=== PATIENT | female | born 1970 | race Caucasian/White ===

== ENCOUNTER 2017-06-27 10:43 | Emergency (ER) | payer OTHER ==
[~2017-06-27] VITALS: Ht 162.6 cm; Wt 77.1 kg
[~2017-06-27 10:43] MED LIST: BENTYL 20 MG TA20 M1 PO; CIPRO500 MG PO; FLAGYL500 MG PO; REMERON15 MG PO; TRI-SPRINTEC1 EACH PO; ZOFRAN ODT4 MG PO
[2017-06-27 11:03] LABS: ABSOLUTE BASOPHILS 0.1 thou/uL (0.0-0.2); ABSOLUTE EOSINOPHILS 0.2 thou/uL (0.0-0.7); ABSOLUTE LYMPHOCYTES 2.7 thou/uL (0.8-5.3); ABSOLUTE MONOCYTES 0.5 thou/uL (0.0-1.2); ABSOLUTE NEUTROPHILS 5.7 thou/uL (1.6-8.1); BASOPHILS 1.2 %; EOSINOPHILS 1.7 %; HEMATOCRIT 37.4 % (37.0-47.0); HEMOGLOBIN 13.1 gm/dL (12.0-15.0); LYMPHOCYTES 29.6 %; MCH 29.4 pg (26.0-34.0); MCHC 34.9 g/dL (28.0-37.0); MCV 84.2 fL (80.0-100.0); MONOCYTES 5.4 %; MPV 7.1 fl. (7.2-11.1); NUCLEATED RBCS 0 /100WBC; PLATELET COUNT* 345 thou/uL (150-400); POLYS 62.1 %; RBC 4.44 mil/uL (4.20-5.00); RDW-CV 13.4 % (10.5-14.5); WBC 9.2 thou/uL (4.0-11.0)
[2017-06-27 11:14] LABS: PROTIME 9.4 Seconds (9.20-11.50)
[2017-06-27 11:24] LABS: ANION GAP 10 mmol/L (7-16); BUN 13 mg/dL (7-18); CALCIUM 8.7 mg/dL (8.5-10.1); CHLORIDE 104 mmol/L (98-107); CO2 25 mmol/L (21-32); CREATININE 0.9 mg/dL (0.6-1.3); GLUCOSE 104 mg/dL (70-99); POTASSIUM 3.6 mmol/L (3.5-5.1); SODIUM 139 mmol/L (136-145)
[2017-06-27 11:44] LABS: ALKALINE PHOSPHATASE 108 U/L (46-116); CK-MB MASS < 0.5 ng/mL (<0.5-3.6); LIPASE 239 U/L (73-393); MAGNESIUM 2.1 mg/dL (1.8-2.4); NT-PRO BRAIN NAT PEPTIDE 48 pg/mL (<300); SGOT 17 U/L (15-37); SGPT 17 U/L (30-65); TOTAL BILIRUBIN 0.2 mg/dL (<0.1-1.0); TOTAL PROTEIN 7.7 g/dL (6.4-8.2); TROPONIN-I LEVEL <0.06 ng/mL (<0.06)
[2017-06-27 11:47] LABS: INFLUENZA A ANTIGEN None Detected (None Detect); INFLUENZA B ANTIGEN None Detected (None Detect)
[2017-06-27 12:06] VITALS: BP 116/73
--- NOTE | 2017-06-28 15:20 | EKG ---
[place] [address] ELECTROCARDIOGRAM REPORT Name: KAREEM CORLEY [id number] Admission: 06/27/17 Attend Phys: Discharge: 06/27/17 Date of : 70 Report #: [id number] THIS REPORT FOR: //name// [facility] ED Test Date: 2017-06-27 Test Time: 10:48:48 Pat Name: KAREEM [facility] Department: Room: Gender: F Sales Executive: CAMMIE : 1970 Requested By: Curly Coello Order Number: [id number] MD: Reilly Mendoza Measurements Intervals [place] Rate: 96 P: 45 CA: 118 QRS: -30 QRSD: 90 T: 34 QT: 355 QTc: 449 Interpretive Statements Sinus rhythm Borderline short CA interval Left ventricular hypertrophy Compared to ECG 12/12/2015 14:54:01 No significant changes Electronically Signed On 06-28-2017 15:20:29 METALLURGICAL ANALYST by Reilly Mendoza [email or web address] <ELECTRONICALLY SIGNED> By: Reilly Mendoza MD, [facility] 06/28/17 1520 1048 1048 Reilly Mendoza MD, FACC /EPI
== END 2017-06-27 12:07 | disposition home or self-care (01) ==
LOC: M.ERS 10:43
PROVIDERS: Family Medicine
DX: R07.89 Other chest pain (principal)